=== PATIENT | male | born 1960 | race Caucasian/White ===

== ENCOUNTER 2016-11-19 08:53 | Day surgery (SDC) | payer MEDICAID ==
[2016-11-05 16:36] VITALS: BMI 26.4
[2016-11-19] MEDS ORDERED: Lactated Ringer's 500 ML IV ONE (09:34)
[2016-11-19] MEDS ORDERED: Propofol 10 mg/ml Inj (20 ML) ONE (10:37)
[2016-11-19 11:15] VITALS: TEMP 97; O2SAT 99
[2016-11-19 11:26] VITALS: BP 110/70; PULSE 72; RESP 15
== END 2016-11-19 11:35 | disposition home or self-care (01) ==
LOC: H.ENDO 08:53
PROVIDERS: ATTEND Internal Medicine Gastroenterology
DX: Z12.11 Encounter for screening for malignant neoplasm of colon (principal); K64.8 Other hemorrhoids; E11.9 Type 2 diabetes mellitus without complications; E78.5 Hyperlipidemia, unspecified